=== PATIENT | female | born 1945 | race Caucasian/White ===

== ENCOUNTER 2023-12-23 13:20 | Outpatient (CLI) | payer OTHER | END 2023-12-23 13:21 | disposition home or self-care (01) | LOC: MRI 13:20 | PROVIDERS: ATTEND Physician Assistant | DX: M25.561 Pain in right knee (principal); S83.241A Other tear of medial meniscus, current injury, right knee, initial encounter; S83.411A Sprain of medial collateral ligament of right knee, initial encounter ==